=== PATIENT | female | born 1965 | race Caucasian/White ===

== ENCOUNTER → 2019-03-26 | Outpatient (CLI) | payer OTHER ==
--- NOTE | 2019-03-26 15:15 | RAD ---
EXAM: Abdomen acute complete. HISTORY: Pain. COMPARISON: None. FINDINGS: A frontal view of the chest and frontal upright and supine views of the abdomen are obtained. There is no infiltrate, pleural effusion or pneumothorax. There is suspected lingular atelectasis or scarring. There is cervical spinal fusion instrumentation. There are nonspecific air-filled loops of bowel within the abdomen. There is no transition point to suggest obstruction. There is no free air. There are cholecystectomy clips. IMPRESSION: 1. No acute pulmonary finding. 2. Nonobstructive bowel gas pattern. Electronically signed by: Maxine Blackwell MD (03/26/2019 3:12 PM) [place] [id number]
== END | disposition home or self-care (01) ==
LOC: PMG 13:29
PROVIDERS: ATTEND Registered Nurse
DX: K59.00 Constipation, unspecified (principal); Z90.49 Acquired absence of other specified parts of digestive tract
CPT/HCPCS: 74022

== ENCOUNTER → 2019-04-07 | Outpatient (CLI) | payer OTHER ==
[~2019-04-07] MED LIST: CONTRAST GIVEN MC PRN; IOHEXOL 240 MG/ML 50ML VIAL. ONE; IOHEXOL 240 MG/ML 50ML VIAL. PO ONE; IOHEXOL 300 MG/ML 75 ML VIAL. IV ONE
--- NOTE | 2019-04-07 11:55 | RAD ---
CT of the abdomen and pelvis with IV and oral contrast and without comparison for severe constipation, abdominal discomfort, history of cholecystectomy. Technique: Contiguous helical 5 mm axial images are obtained from the apex of diaphragm to the pelvic floor following a ministration of IV and oral contrast. Sagittal and coronal reformations are evaluated. FINDINGS: The lung bases are clear. Heart size within normal limits. No significant osseous abnormalities are seen. There is been a prior cholecystectomy. The liver, pancreas, spleen, bilateral adrenal glands, and bilateral kidneys are grossly unremarkable, save for a 6 mm simple appearing cyst involving the inferior pole the right kidney for which no further follow-up is required. The urinary bladder is only partially fluid distended but is grossly unremarkable as well. Pelvic organs are absent. No suspicious mesenteric, retroperitoneal, or inguinal adenopathy is seen. No free or loculated fluid collections are identified. There is inhomogeneous opacification of bowel, with no evidence of bowel wall thickening or bowel dilatation. The appendix is normal in appearance. There is moderate amount of stool throughout the right and transverse colon, with minimal stool throughout the descending and sigmoid colon. IMPRESSION: 1. Changes of antecedent cholecystectomy, with no discernible abdominal or pelvic abnormality to account for the patient's symptoms. PQRS Compliance Statement: One or more of the following individualized dose reduction techniques were utilized for this examination: 1. Automated exposure control 2. Adjustment of the mA and/or kV according to patient size 3. Use of iterative reconstruction technique Electronically signed by: Ab Ramsey MD (04/07/2019 11:53 AM) [id number]
== END | disposition home or self-care (01) ==
LOC: CT 07:44
PROVIDERS: ATTEND Registered Nurse
DX: K59.00 Constipation, unspecified (principal); Z90.49 Acquired absence of other specified parts of digestive tract
CPT/HCPCS: 74177; Q9966; Q9967

== ENCOUNTER → 2019-11-25 | Outpatient (CLI) | payer OTHER ==
--- NOTE | 2019-11-25 16:06 | RAD ---
DATE: 11/25/2019 1:58 PM EXAM: MAMMO KOURTNEY ALICE STEINBERGAT, BREAST RIGHT HISTORY: Right breast lump. Patient is due for screening COMPARISON: None currently available. Bilateral CC and MLO views of the breasts were performed. Bilateral breast tomosynthesis was performed in CC and MLO projections. Additional diagnostic views of the right breast with spot compression in the CC and MLO views were obtained. This study was interpreted with the benefit of Computerized Aided Detection (CAD). Targeted ultrasound of the area of palpable concern in the right breast was also pursued. FINDINGS: Breast Density: SCATTERED The breast parenchyma shows scattered fibroglandular densities. Breast parenchyma level B Negative left mammogram. Oval circumscribed dense mass in the far medial right breast corresponds with the palpable area of concern was targeted for additional imaging by ultrasound. Targeted ultrasound of the medial right breast showed a parallel orientation complicated cyst with fluid/fluid levels measuring 1.5 x 1.6 x 1.1 cm. No internal vascularity. This is identified at the 2:00 position 9 cm from the nipple. Sonographic survey of the right axilla revealed no adenopathy. IMPRESSION: Mildly suspicious complicated cyst in the medial right breast corresponding with the area of palpable concern. Cyst aspiration with possible biopsy is recommended. BI-RADS CATEGORY: 4 SUSPICIOUS ABNORMALITY- BIOPSY SHOULD BE CONSIDERED RECOMMENDED FOLLOW-UP: BIO BIOPSY RECOMMENDED Cyst aspiration with possible biopsy is recommended. Patient notified by the technologist at my request prior to her discharge from the imaging suite. I also discussed this with the patient's referring physician Dr. Mejias by telephone at 3:51 PM on 11/25/2019 PQRS compliance statement: Patient information was entered into a reminder system with a target due date for the next mammogram. Mammography is a sensitive method for finding small breast cancers, but it does not detect them all and is not a substitute for careful clinical examination. A negative mammogram does not negate a clinically suspicious finding and should not result in delay in biopsying a clinically suspicious abnormality. "Our facility is accredited by the [employer] Mammography Program."
== END | disposition home or self-care (01) ==
LOC: MAMMO 13:54
PROVIDERS: ATTEND Family Medicine
DX: N60.01 Solitary cyst of right breast (principal); N63.0 Unspecified lump in unspecified breast
CPT/HCPCS: 76641; 77066; G0279; 77062